=== PATIENT | male | born 1935 | race Caucasian/White ===

== ENCOUNTER 2017-08-02 09:43 | Emergency (ER) | payer MEDICARE, OTHER ==
[~2017-08-02] VITALS: Ht 170.2 cm; Wt 72.6 kg
--- OUTSIDE RECORDS SUMMARY | ~2017-08-02 | XMS | Encounter Summary ---
Demographics + + + | Address | [address] | | | [place] [address] | + + + | Home Phone | | + + + | Preferred Language | Unknown | + + + | Marital Status | | + + + | Christian Affiliation | 1009 | + + + | Race | Unknown | + + + | Ethnic Group | Unknown | + + + Author + + + | Author | [facility] | + + + | Organization | [facility] | + + + | Address | Unknown | + + + | Phone | Unavailable | + + + Support + + +---------+ + | Name | Relationship | Address | Phone | + + +---------+ + | Arminda Olivia | ECON | Unknown | | + + +---------+ + | Enio Moya | ECON | Unknown | | + + +---------+ + | Marina Lee | ECON | Unknown | | + + +---------+ + Care Team Providers + +------+ + | Care Circuit Court Clerk Name | Role | Phone | + +------+ + | Ricardo Chopra MD | PCP | | + +------+ + Reason for Visit + + + | Reason | Comments | + + + | Pacemaker | In office. | + + + Encounter Details +--------+ + + + + | Date | Type | Department | Care Team | Description | +--------+ + + + + | 05/30/ | Documentati | [facility] | Garth Priest | Pacemaker (In | | 2017 | on Only | [facility] [place] | | office. ) | | | | [address] | | | | | | [address] | | | | | | [place] [address] | | | | | | [phone] | | | +--------+ + + + + Social History + +-------+ +--------+------+ | Tobacco Use | Types | Packs/Day | Years | Date | | | | | Used | | + +-------+ +--------+------+ | Former Smoker | | | | | + +-------+ +--------+------+ + +---+---+---+ | Smokeless Tobacco: | | | | | Never Used | | | | + +---+---+---+ + + +---------+ + | Alcohol Use | Drinks/We | oz/Week | Comments | | | ek | | | + + +---------+ + | Yes | 4 Shots | 2.4 | | | | of | | | | | liquor | | | + + +---------+ + + + + | Sex Assigned at | Date Recorded | | | | + + + | Not on file | | + + + as of this encounter Progress Notes Garth Priest - 05/30/2017 11:15 AM PSTIN OFFICE DEVICE INTERROGATION: Longevity/voltage: 8 years. Anticoagulation: Warfarin 5 mg qd Aspirin: 81 mg qd Lead Impedance: WNL Thresholds: WNL Right Ventricle pace: 51.2% Events: 12 NSVT (3 since last [facility] transmission). All at 1 second in duration. Changes: No changes noted. Plan: Remotes / Yearly Last in office with product assembler: 02/22/[address] Hooks. Tech: Jose / Daniela saenz encounter Plan of Treatment +--------+ + + + + | Date | Type | Specialty | Care Team | Description | +--------+ + + + + | 09/06/ | Documentati | Cardiology | | | | 2017 | on Only | | | | +--------+ + + + + | 11/22/ | Office | Cardiology | Yojana Hooks, | | | 2017 | Visit | | MD Leena Graves | | | | | | [address], | | | | | | [place] [address] | | | | | | [phone] | | | | | | | | +--------+ + + + + | 12/06/ | Documentati | Cardiology | | | | 2017 | on Only | | | | +--------+ + + + + | 03/07/ | Documentati | Cardiology | | | | 2017 | on Only | | | | +--------+ + + + + as of this encounter Visit Diagnoses + + | Diagnosis | + + | Chronic atrial fibrillation (HCC) - Primary | + + | Atrial fibrillation | + + | Bradycardia | + + | Other specified cardiac dysrhythmias | + + | Pacemaker | + + | Cardiac pacemaker in situ | + + | Valvular heart disease | + + | Endocarditis, valve unspecified, unspecified cause | + +"
--- OUTSIDE RECORDS SUMMARY | ~2017-08-02 | XMS | Encounter Summary ---
Demographics + + + | Address | [address] | | | [place] [address] | + + + | Home Phone | | + + + | Preferred Language | Unknown | + + + | Marital Status | | + + + | Scientologist Affiliation | 1009 | + + + | Race | Unknown | + + + | Ethnic Group | Unknown | + + + Author + + + | Author | [facility] | + + + | Organization | [facility] | + + + | Address | [...] Team Providers + +------+ + | Care Gang Worker Name | Role | Phone | + [...] + | 05/30/ | Documentati | [facility] | Garth Priest | Pacemaker (In | | 2017 | on Only | [facility] [place] | | office. 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 Hooks. Tech: Jose / [...] | | | | | | [place] [address] | | | | | | [phone] | | | | | | | [...]
--- OUTSIDE RECORDS SUMMARY | ~2017-08-02 | XMS | Clinical Summary ---
Demographics + + + | Address | [address] | | | [place] [address] | + + + | Home Phone | | + + + | Preferred Language | Unknown | + + + | Marital Status | | + + + | Episcopal Affiliation | Unknown | + + + | Race | Unknown | + + + | Ethnic Group | Unknown | + + + Author + + + | Author | [facility] | | | and [place] | + + + | Organization | [facility] | | | and [place] | + + + | Address | Unknown | + + + | Phone | Unavailable | + + + Support + + + + + | Name | Relationship | Address | Phone | + + + + + | Arminda Olivia | ECON | [place], [place] | | | | | [address] | | + + + + + | Radha Mathias | ECON | [address] | | | | | [place] | | | | | [address] | | + + + + + Care Team Providers + +------+ + | Care Account Representative Name | Role | Phone | + +------+ + | Petr Chopra | PP | | + +------+ + Allergies + + + + + + | Active Allergy | Reactions | Severity | Noted | Comments | | | | | Date | | + + + + + + | Codeine | | | 07/03/19 | | | | | | 13 | | + + + + + + | Lisinopril | | | 07/03/19 | Cough | | | | | 13 | | + + + + + + | Penicillins | | | 07/03/19 | | | | | | 13 | | + + + + + + Current Medications + + +-------+---------+------+------+-------+ | Prescription | Sig. | Disp. | Refills | Star | End | Statu | | | | | | t | Date | s | | | | | | Date | | | + + +-------+---------+------+------+-------+ | potassium chloride | Take 10 mEq by mouth | | | | | Activ | | (KLOR-CON 10) 10 | Daily. | | | | | e | | mEq CR tablet | | | | | | | + + +-------+---------+------+------+-------+ | furosemide (LASIX) | Take 20 mg by mouth | | | | | Activ | | 20 mg tablet | Daily. | | | | | e | + + +-------+---------+------+------+-------+ | metoprolol | Take 25 mg by mouth | | | | | Activ | | succinate (TOPROL | Daily. | | | | | e | | XL) 25 mg 24 hr | | | | | | | | tablet | | | | | | | + + +-------+---------+------+------+-------+ | valsartan (DIOVAN) | Take 80 mg by mouth | | | | | Activ | | 80 mg tablet | Daily. | | | | | e | + + +-------+---------+------+------+-------+ | celecoxib | Take 200 mg by mouth | | | | | Activ | | (CELEBREX) 200 mg | 2 times daily. | | | | | e | | capsule | | | | | | | + + +-------+---------+------+------+-------+ | warfarin | Take 5 mg by mouth | | | | | Activ | | (COUMADIN) 5 mg | Daily. Take as | | | | | e | | tablet | directed | | | | | | + + +-------+---------+------+------+-------+ | omeprazole | Take 20 mg by mouth | | | | | Activ | | (PRILOSEC) 20 mg | every morning | | | | | e | | capsule | (before breakfast). | | | | | | + + +-------+---------+------+------+-------+ | ibuprofen (ADVIL, | Take 400 mg by mouth | | | | | Activ | | MOTRIN) 200 mg | every 6 hours as | | | | | e | | tablet | needed. | | | | | | + + +-------+---------+------+------+-------+ | nitroglycerin | Place 0.4 mg under | | | | | Activ | | (NITROSTAT) 0.3 mg | the tongue every 5 | | | | | e | | SL tablet | minutes as needed. | | | | | | + + +-------+---------+------+------+-------+ | | Take by mouth 2 | | | | | Activ | | Glucosamine-Chondroi | times daily. | | | | | e | | tin-MSM 500-400-250 | | | | | | | | MG TABS | | | | | | | + + +-------+---------+------+------+-------+ | Multiple | Take by mouth | | | | | Activ | | Vitamins-Minerals | Daily. | | | | | e | | (CENTRUM SILVER PO) | | | | | | | + + +-------+---------+------+------+-------+ | lovastatin | Take 40 mg by mouth | | | | | Activ | | (MEVACOR) 40 MG | nightly. | | | | | e | | tablet | | | | | | | + + +-------+---------+------+------+-------+ | OMEGA 3 1000 MG | Take 1,000 mg by | | | | | Activ | | CAPS | mouth Daily. | | | | | e | + + +-------+---------+------+------+-------+ | aspirin 81 mg EC | Take 81 mg by mouth | | | | | Activ | | tablet | Daily. 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[facility]) | 07/02/2012 | + + + | Atrial fibrillation (HCC) | 07/02/2012 | + + + | CHF (congestive heart failure) ([facility]) | 07/02/2012 | + + + | Hyperlipidemia | 07/02/2012 | + + + | BPH (benign prostatic hyperplasia) | 07/02/2012 | + + + | Angina effort ([facility]) | 07/02/2012 | + + + Immunizations + + + + | Name | Dates Previously Given | Next Due | + + + + | PNEUMOCOCCAL | 07/05/2007 | | | POLYSACCHARIDE | | | | 23-VALENT (PPSV23) | | | + + + + Family History + + +------+ + | Medical History | Relation | Name | Comments | + + +------+ + | Stroke | Brother | | | + + +------+ + | Other (see comment) | Brother | | lung disease, was in the | + + +------+ + | Stroke | Brother | | | + + +------+ + | Hypertension | Brother | | | + + +------+ + | Suicide | Brother | | | + + +------+ + | Obesity | Daughter | | | + + +------+ + | Other (see comment) | Daughter | | sleep apnea | + + +------+ + | Heart attack | Father | | | + + +------+ + | Ovarian cancer | Mother | | | + + +------+ + | Other (see comment) | Son | | empyema | + + +------+ + + +------+ + + | Relation | Name | Status | Comments | + +------+ + + | Brother | | | | + +------+ + + | Brother | | | | + +------+ + + | Brother | | | | + +------+ + + | Brother | | | | + +------+ + + | Daughter | | Alive | | + +------+ + + | Daughter | | Alive | | + +------+ + + | Father | | | heart attack | + +------+ + + | Mother | | | | + +------+ + + | Sister | | Alive | | + +------+ + + | Son | | Alive | | + +------+ + + Social History + + + +--------+ + | Tobacco Use | Types | Packs/Day | Years | Date | | | | | Used | | + + + +--------+ + | Former Smoker | Pipe, Cigars | | 3 | Quit: 04/03/1989 | + + + +--------+ + + +---+---+---+ | Smokeless Tobacco: | | | | | Never Used | | | | + +---+---+---+ + + | Comments: cigars and pipe for a few years | + + + + +---------+ + | Alcohol Use | Drinks/We | oz/Week | Comments | | | ek | | | + + +---------+ + | Yes | 3 | 1.5 | | | | Standard | | | | | drinks or | | | | | | | | | | equivalen | | | | | t | | | + + +---------+ + + + + | Sex Assigned at | Date Recorded | | | | + + + | Not on file | | + + + Last Filed Vital Signs + + + + | Vital Sign | Reading | Time Taken | + + + + | Blood Pressure | 120/64 | 07/04/2012953 PDT | + + + + | Pulse | 55 | 07/04/201254 PDT | + + + + | Temperature | - | - | + + + + | Respiratory Rate | - | - | + + + + | Oxygen Saturation | 98% | 07/04/2012953 PDT | + + + + | Inhaled Oxygen | - | - | | Concentration | | | + + + + | Weight | 82.4 kg (181 lb 9.6 | 07/04/2012953 PDT | | | oz) | | + + + + | Height | 166.4 cm (5' 5.5") | 07/04/2012953 PDT | + + + + | Body Mass Index | 29.76 | 07/04/2012953 PDT | + + + + Plan of Treatment + + + + + | Health Maintenance | Due Date | Last Done | Comments | + + + + + | Vaccine: | | | | | Dtap/Tdap/Td (1 - | 4 | | | | Tdap) | | | | + + + + + | Vaccine: | | 07/05/2007 | | | Pneumococcal 65+ | 9 | | | | Low/Medium Risk (2 | | | | | of 2 - PCV13) | | | | + + + + + | Vaccine: Influenza | | | | | (Season Ended) | 8 | | | + + + + + Results Not on filefrom Last 3 Months Insurance + +--------+ +--------+ +---------+ | Payer | Benefi | Subscriber | Type | Phone | Address | | | t Plan | ID | | | | | | / | | | | | | | Group | | | | | + +--------+ +--------+ +---------+ | MEDICARE | MEDICA | xxxxxxxxxx | Medica | [phone] | | | RE | | re | [phone] | | | | PART A | | | | | | | AND B | | | | | + +--------+ +--------+ +---------+ | SHAY | STERLI | xxxxxxx | Indemn | [phone] | | | NG | | ity | [phone] | | | | INVEST | | | | | | | ORS | | | | | | | MDCR | | | | | | | SUPPL | | | | | + +--------+ +--------+ +---------+ + +--------+ +--------+ + + | Guarantor Name | Accoun | Relation to | Date | Phone | Billing Address | | | t Type | Patient | of | | | | | | | | | | + +--------+ +--------+ + + | FLYNN MATHIAS | Person | Self [birth year] Home: | [address] | | | al/Fam | | 1936 | [phone] | [place] [address] | | | [place] | | | [phone] | | + +--------+ +--------+ + +
--- OUTSIDE RECORDS SUMMARY | ~2017-08-02 | XMS | Clinical Summary ---
Demographics + + + | Address | [address] | | | [place] [address] | + + + | Home Phone | | + + + | Preferred Language | Unknown | + + + | Marital Status | | + + + | Episcopal Affiliation | Unknown | + + + | Race | Unknown | + + + | Ethnic Group | Unknown | + + + Author + + + | Author | [facility] | | | and [place] | + + + | Organization | [facility] | | | and [place] | + + + | Address | Unknown | + + + | Phone | Unavailable | + + + Support + + + + + | Name | Relationship | Address | Phone | + + + + + | Arminda Olivia | ECON | [place], [place] | | | | | [address] | | + + + + + | Radha Mathias | ECON | [address] | | | | | [place] | | | | | [address] | | + + + + + Care Team Providers + +------+ + | Care Material Liaison Name | Role | Phone | + [...] + + | DVT (deep venous thrombosis) ([facility]) | 07/02/2012 | + + + + + | Overview: Or embolism of distal lower extremity | + + + + + | Pulmonary embolism and infarction ([facility]) | 07/02/2012 | + + + | Atrial fibrillation (HCC) | 07/02/2012 | + + + | CHF (congestive heart failure) ([facility]) | 07/02/2012 | + + + | Hyperlipidemia | 07/02/2012 | + + + | BPH (benign prostatic hyperplasia) | 07/02/2012 | + + + | Angina effort ([facility]) | 07/02/2012 | + + + Immunizations [...] Self | [birth year] | Home: | [address] | | | al/Fam | | 1936 | [phone] | [place] [address] | | | [place] | | | [phone] | | + +--------+ +--------+ + +
--- OUTSIDE RECORDS SUMMARY | ~2017-08-02 | XMS | Clinical Summary ---
Demographics + + + | Address | [address] | | | [place] [address] | + + + | Home Phone | | + + + | Preferred Language | Unknown | + + + | Marital Status | | + + + | Worship Affiliation | 1009 | + + + | Race | Unknown | + + + | Ethnic Group | Unknown | + + + Author + + + | Author | [facility] | + + + | Organization | [facility] | + + + | Address | Unknown | + + + | Phone | Unavailable | + + + Support + + +---------+ + | Name | Relationship | Address | Phone | + + +---------+ + | Arminda Olivia | ECON | Unknown | | + + +---------+ + | Enio Mathias | ECON | Unknown | | + + +---------+ + | Marina Lee | ECON | Unknown | | + + +---------+ + Care Team Providers + +------+ + | Care Facility Rehab Director Name | Role | Phone | + +------+ + | Ricardo Chopra MD | PP | | + +------+ + Allergies + + + + + + | Active Allergy | Reactions | Severity | Noted | Comments | | | | | Date | | + + + + + + | Codeine | Swelling | Medium | 12/18/19 | | | | | | 13 | | + + + + + + | Penicillins | Swelling | Medium | 12/18/19 | | | | | | 13 | | + + + + + + Current Medications + + +-------+---------+------+------+-------+ | Prescription | Sig. | Disp. | Refills | Star | End | Statu | | | | | | t | Date | s | | | | | | Date | | | + + +-------+---------+------+------+-------+ | aspirin 81 MG EC | Take 81 mg by mouth | | | | | Activ | | tablet | daily with | | | | | e | | | breakfast. | | | | | | + + +-------+---------+------+------+-------+ | Multiple Vitamin | Take 1 tablet by | | | | | Activ | | (MULTIVITAMIN) | mouth daily. | | | | | e | | tablet | Complete Mens | | | | | | | | Multi-Vitamin | | | | | | + + +-------+---------+------+------+-------+ | | Take 1 tablet by | | | | | Activ | | glucosamine-chondroi | mouth 3 (three) | | | | | e | | tin 500-400 MG | times daily. | | | | | | | tablet | | | | | | | + + +-------+---------+------+------+-------+ | nitroGLYCERIN | Place 0.4 mg under | | | | | Activ | | (NITROSTAT) 0.4 MG | the tongue every 5 | | | | | e | | SL tablet | (five) minutes as | | | | | | | | needed. | | | | | [...] | | Activ | | (PRILOSEC) 20 MG | every morning before | | | | | e | | capsule | breakfast. | | | | | | + + +-------+---------+------+------+-------+ | potassium chloride | Take 10 mEq by mouth | | | | | Activ | | (K-DUR) 10 MEQ | daily. | | | | | e | | tablet | | | | | | | + + +-------+---------+------+------+-------+ | furosemide (LASIX) | Take 20 mg by mouth | | | | | Activ | | 20 MG tablet | 2 (two) times daily. | | | | | e | + + +-------+---------+------+------+-------+ | warfarin | Take 5 mg by mouth | | | | | Activ | | (COUMADIN) 5 MG | daily. Regulated by | | | | | e | | tablet | [facility] | | | | | | | | [facility] | | | | | | + + +-------+---------+------+------+-------+ | losartan (COZAAR) | Take 100 mg by mouth | | | | | Activ | | 100 MG tablet | daily. | | | | | e | + + +-------+---------+------+------+-------+ | fish oil-omega-3 | Take 1 g by mouth 2 | | | | | Activ | | fatty acids 1000 MG | (two) times daily. | | | | | e | | capsule | | | | | | | + + +-------+---------+------+------+-------+ | Multiple | Take by mouth | | | | | Activ | | Vitamins-Minerals | daily. | | | | | e | | ([facility] | | | | | | | | PO) | | | | | | | + + +-------+---------+------+------+-------+ | QUININE SULFATE PO | Take 300 mg by mouth | | | | | Activ | | | nightly. | | | | | e | + + +-------+---------+------+------+-------+ | celecoxib | Take 200 mg by mouth | | | | | Activ | | (CELEBREX) 200 MG | daily. | | | | | e | | capsule | | | | | | | + + +-------+---------+------+------+-------+ | allopurinol | Take 100 mg by mouth | | | | | Activ | | (ZYLOPRIM) 100 MG | 2 (two) times | | | | | e | | tablet | daily. | | | | | | + + +-------+---------+------+------+-------+ Active Problems + + + | Problem | Noted Date | + + + | Pacemaker | 08/12/2015 | + + + + + | Overview: Medtronic | + + + + + | Essential hypertension | 09/25/2014 | + + + + + | Last Assessment & Plan: HTN, controlled, continue current | | meds at current doses (Lasix, losartan). | + + + + + | CKD (chronic kidney disease) stage 3, GFR 30-59 ml/min | 09/25/2014 | + + + + + | Last Assessment & Plan: CKD, Stage 3, followed by PCP. | + + + + + | CAD (coronary artery disease) | 04/26/2013 | + + + + + | Last Assessment & Plan: 3V-CAD, Hx CABG, Hx PCI/stent, LVEF | | 50-55%. 80yo WM, continues to be modestly active, thinks | | that he is exiting feeling better after pacemaker implantation. | | Also since her last visit, he was admitted with either pneumonia | | or bronchitis, is recovering from that as well. He admits a mild | | degree of exertional shortness of breath and fatigue, but there | | is no orthopnea, PND, or edema. Denies any significant chest | | discomfort. Denies any new visual disturbances, dysarthria, | | dysphasia, lateralizing signs or symptoms. No significant | | bleeding or bruising. Labs reviewed with patient. His device is | | stable. Tolerating medications. No changes in therapy.Hx CABG: | | 1995, CABG*6 (CASTANEDA to LAD, SVG to D1, SVG to ramus, SVG to OM, | | SVG to RPLB, SVG to PDA).Hx PCI/stent: 05/11/2010, D1 (2.25/*mm | | Taxus) 12/18/2012, SVG to RPLB (4.0*16mm Promus | | EP)Hx Pacemaker/ICD: 01/23/2015, Medtronic Advisa MRI A3SR01, | | SN: [id number].Last Cath: 12/18/2012: Left main OK, LAD/LCx/RCA | | occluded, SVG (Y-graft) to ramus, OM occluded, SVG to PDA | | occluded, CASTANEDA to LAD intact, SVG to D1 intact, SVG to RPLB | | stented (4.0*16mm PEP).Last Echo: 12/19/2012: LVEF 50-55%, | | moderate LAE, moderate MR, moderate TR, mild AI, moderate | | Pulmonary HTN.Last Stress Test, 10/28/2014: Lexiscan, mild distal | | lateral Ischemia, LVEF 71%, A fib throughout.NAE, 10/28/2014: no | | significant PAD.24hr HM, 12/04/2014: A fib, 43-122, averaging | | 66bpm, occ PVC's, 601 pauses (2.0-3.1sec).ECG, 05/15/2015 ([facility] | | [facility]): A fib, 71bpm, PVC, VVI-pacing, low voltage. | + + + + + | Chronic atrial fibrillation (HCC) | 04/26/2013 | + + + + + | Last Assessment & Plan: Chronic A fib, SVR, pacemaker | | therapy, anticoagulation (warfarin ) per PCP. No neurological | | symptoms, no significant bleeding or bruising.24hr HM, 12/04/2014: | | A fib, 43-122, averaging 66bpm, occ PVC's, 601 pauses | | (2.0-3.1sec).Pacemaker implanted 01/23/2015, Medtronic Advisa MRI | | A3SR01, SN: [id number].Last interrogation, 04/09/2015: battery at | | 3.03V (YOAV 2.83V), 8+ years, device stable, VVI-R (60/120), | | V-paced 62%. | + + + + + | Hyperlipidemia | 04/26/2013 | + + + + + | Last Assessment & Plan: Hyperlipidemia, at goal, continue | | current meds at current doses (lovastatin). Labs reviewed with | | patient. Labs, 06/04/2015: T Chol: 136, LDL-Chol: 68, HDL-Chol: | | 52, Tri, BNP: 261 Liver enzymes | | NML, K: 4.3, BUN/Cr: 16/1.7 (GFR 40), glu: 84 | | ESR: 9, HgbA1c: 5.7, WBC: 4.3, H/H: 12.0/36.2, plt: 127 | + + + + + | Valvular heart disease | 04/26/2013 | + + + + + | Last Assessment & Plan: Moderate MR, moderate TR. Clinically | | stable.Last Echo: 12/19/2012: LVEF 50-55%, moderate LAE, moderate | | MR, moderate TR, mild AI, moderate Pulmonary HTN. | + + + + + | Pulmonary HTN | 04/26/2013 | + + + + + | Last Assessment & Plan: Moderate Pulmonary HTN, probably due | | to MR, asymptomatic.Last Echo: 12/19/2012: LVEF 50-55%, moderate | | LAE, moderate MR, moderate TR, mild AI, moderate Pulmonary HTN. | + + + + + | Spinal stenosis of lumbar region | 07/02/2012 | + + + | Pulmonary embolism and infarction | 07/02/2012 | + + + Resolved Problems + + + + | Problem | Noted | Resolved | | | Date | Date | + + + + | Chest pain | 12/19/19 | | | | 13 | 7 | + + + + | Renal failure, acute | 12/19/19 | | | | 13 | 7 | + + + + Encounters +--------+ + + + + | Date | Type | Specialty | Care Team | Description | +--------+ + + + + | 05/30/ | Documentati | | Garth Priest | Pacemaker (In | | 2018 | on Only | | | office. ) | +--------+ + + + + from Last 3 Months Family History + + +------+ + | Medical History | Relation | Name | Comments | + + +------+ + | Heart disease | Father | | | + + +------+ + | Hypertension | Father | | | + + +------+ + | Cancer | Mother | | ovarian cancer | + + +------+ + | Heart disease | Mother | | | + + +------+ + + +------+ + + | Relation | Name | Status | Comments | + +------+ + + | Father | | | coronary thrombosis, HTN | | | | (Age | | | | | 82) | | + +------+ + + | Mother | | | heart disease,cancer | | | | (Age | | | | | 84) | | + +------+ + + Social History + +-------+ +--------+------+ [...] + + + | Blood Pressure | 104/62 | 02/22/2017 9:08 AM PST | + + + + | Pulse | 74 | 02/22/2017 9:08 AM PST | + + + + | Temperature | 36.8 C (98.2 F) | 01/24/2015 7:33 AM PDT | + + + + | Respiratory Rate | 18 | 08/12/2015 3:30 PM PDT | + + + + | Oxygen Saturation | 96% | 02/22/2017 9:08 AM PST | + + + + | Inhaled Oxygen | - | - | | Concentration | | | + + + + | Weight | 74.9 kg (165 lb 3.2 | 02/22/2017 9:08 AM PST | | | oz) | | + + + + | Height | 167.6 cm (5' 6") | 02/22/2017 9:08 AM PST | + + + + | Body Mass Index | 26.66 | 02/22/2017 9:08 AM PST | + + + + Plan of Treatment +--------+ + + + + | Date | Type | Specialty | Care Team | Description | +--------+ + + + + | 09/06/ | Documentati | | | | | 2017 | on Only | | | | +--------+ + + + + | 11/22/ | Office | | Yojana Hooks, | | | 2017 | Visit | | MD Leena Graves | | | | | | [address], | | | | | | [place] [address] | | | | | | [phone] | | | | | | | | +--------+ + + + + | 12/06/ | Documentati | | | | | 2017 | on Only | | | | +--------+ + + + + | 03/07/ | Documentati | | | | | 2017 | on Only | | | | +--------+ + + + + + + + + + | Health [...] + + + | Vaccine: Influenza | 09/01/201 | | | | (Season Ended) | 8 | | | + + + + + Implants + +--------+------+ +--------+--------+--------+ | Implanted | Type | Area | Manufacture | Device | Expira | Model | | | | | r | | tion | / | | | | | | Identi | Date | Serial | | | | | | fier | | / Lot | + +--------+------+ +--------+--------+--------+ | Generator-01/23/2015Implanted | Pacema | | MEDTRONIC - | | | | | : 01/23/2015 by Delvin Phelps | ker | | MEDT | | | /[id number] | | T DO (Quantity not on file) | | | | | | [id number] | | | | | | | | / | + +--------+------+ +--------+--------+--------+ | Rv Lead-01/23/2015Implanted: | Pacema | | [employer]TRONIC - | | | | | 01/23/2015 by Delvin Phelps | ker | | MEDT | | | /[id number] | | T, DO (Quantity not on file) | | | | | | [id number] | | | | | | | | / | + +--------+------+ +--------+--------+--------+ Results Not on filefrom Last 3 Months Insurance + +--------+ +------+-------+ + | Payer | Benefi | Subscriber | Type | Phone | Address | | | t Plan | ID | | | | | | / | | | | | | | Group | | | | | + +--------+ +------+-------+ + | MEDICARE | MEDICA | xxxxxxxxxx | | | [address] | | | RE | | | | [place] [address] | | | IP-OP | | | | | + +--------+ +------+-------+ + | COMMERCIAL OTHER | TRANSA | xxxxxxxxx | | | | | | MERICA | | | | | | | LIFE | | | | | + +--------+ +------+-------+ + + +--------+ +--------+ + + | Guarantor Name | Accoun | Relation to | Date | Phone | Billing Address | | | t Type | Patient | of | | | | | | | | | | + +--------+ +--------+ + + | FLYNN MATHIAS | Person | Self [birth year] Home: | [address] | | | al/Fam | | 1936 | [phone] | [place] | | | [place] | | | [phone] | [phone] | + +--------+ +--------+ + +
--- OUTSIDE RECORDS SUMMARY | ~2017-08-02 | XMS | Clinical Summary ---
Demographics + + + | Address | [facility] [address] | | | [place] [address] | + + + | Home Phone | | + + + | Preferred Language | Unknown | + + + | Marital Status | | + + + | Zoroastrianism Affiliation | BAP | + + + | Race | White | + + + | Ethnic Group | Not or | + + + Author + + + | Author | [facility] REVENUE LOCATIONS | + + + | Organization | NON REVENUE LOCATIONS | + + + | Address | Unknown | + + + | Phone | Unavailable | + + + Support + + + + + | Name | Relationship | Address | Phone | + + + + + | ANTONIA MATHIAS | ECON | [address] | | | | | [place] | | | | | [address] | | + + + + + Care Team Providers + +------+ + | Care Manufacturing Baker Name | Role | Phone | + +------+ + | Petr Chopra MD | PP | | + +------+ + Source Comments LIBBY is fully live on both [facility] and [facility] & [facility] Allergies + + + + + + | Active Allergy | Reactions | Severity | Noted | Comments | | | | | Date | | + + + + + + | Codeine | Pruritus | | 06/23/19 | | | | | | 17 | | + + + + + + | Penicillin | Pruritus | | 06/23/19 | | | | | | 17 | | + + + + + + Current Medications + + +--------+---------+------+------+-------+ | Prescription | Sig. | Disp. | Refills | Star | End | Statu | | | | | | t | Date | s | | | | | | Date | | | + + +--------+---------+------+------+-------+ | Glucosamine | Take 500 mg by mouth | | | | | Activ | | Sulfate 500 mg oral | two times daily. | | | | | e | | capsule | | | | | | | + + +--------+---------+------+------+-------+ | lovastatin 40 mg | Take 40 mg by mouth | | | | | Activ | | oral tablet | once daily in the | | | | | e | | | evening. Administer | | | | | | | | with evening meal. | | | | | | + + +--------+---------+------+------+-------+ | losartan 100 mg | Take 100 mg by mouth | | | | | Activ | | oral tablet | once daily. | | | | | e | + + +--------+---------+------+------+-------+ | omeprazole 20 mg | Take 20 mg by mouth | | | | | Activ | | oral capsule,delayed | once daily. | | | | | e | | release(DR/EC) | | | | | | | + + +--------+---------+------+------+-------+ | FLAXSEED OIL | Take 1,000 mg by | | | | | Activ | | (OMEGA 3 ORAL) | mouth two times | | | | | e | | | daily. | | | | | | + + +--------+---------+------+------+-------+ | aspirin EC 81 mg | Take 81 mg by mouth | | | | | Activ | | oral tablet,delayed | once daily. | | | | | e | | release (DR/EC) | | | | | | | + + +--------+---------+------+------+-------+ | warfarin 5 mg oral | Take 5 mg by mouth | | | | | Activ | | tablet | once daily. | | | | | e | + + +--------+---------+------+------+-------+ | potassium chloride | Take 10 mEq by mouth | | | | | Activ | | SR 10 mEq oral | once daily. | | | | | e | | tablet,ER | | | | | | | | particles/crystals | | | | | | | + + +--------+---------+------+------+-------+ | furosemide 20 mg | Take 20 mg by mouth | | | | | Activ | | oral tablet | two times daily. | | | | | e | + + +--------+---------+------+------+-------+ | QUININE SULFATE | Take 300 mg by mouth | | | | | Activ | | ORAL | once daily as | | | | | e | | | needed. | | | | | | + + +--------+---------+------+------+-------+ | allopurinol 100 mg | Take 100 mg by mouth | | | | | Activ | | oral tablet | two times daily. | | | | | e | + + +--------+---------+------+------+-------+ | | Take 1 to 2 tablets | 50 | 0 | 04/2 | | Activ | | HYDROcodone-acetamin | by mouth every four | tablet | | 08/20 | | e | | ophen 5-325 mg oral | hours as needed. | | | 17 | | | | tablet | | | | | | | + + +--------+---------+------+------+-------+ Active Problems + + + | Problem | Noted Date | + + + | SNHL (sensorineural hearing loss) | 06/22/2016 | + + + Social History + +-------+ +--------+ + | Tobacco Use | Types | Packs/Day | Years | Date | | | | | Used | | + +-------+ +--------+ + | Former Smoker | | | | Started: 06/23/1979 | + +-------+ +--------+ + + +---+---+---+ | Smokeless Tobacco: | | | | | Never Used | | | | + +---+---+---+ + + +---------+ + | Alcohol Use | Drinks/We | oz/Week | Comments | | | ek | | | + + +---------+ + | Yes | 1 Shots | 0.6 | every day | | | of | | | [...] + + + | Blood Pressure | 133/66 | 07/26/2016 7:36 PM PDT | + + + + | Pulse | 70 | 07/26/2016 7:36 PM PDT | + + + + | Temperature | 36.6 C (97.9 F) | 07/26/2016 7:36 PM PDT | + + + + | Respiratory Rate | 16 | 07/26/2016 7:36 PM PDT | + + + + | Oxygen Saturation | 95% | 07/26/2016 7:36 PM PDT | + + + + | Inhaled Oxygen | - | - | | Concentration | | | + + + + | Weight | 79.4 kg (175 lb) | 07/26/2016 1:31 PM PDT | + + + + | Height | 167.6 cm (5' 6") | 07/26/2016 1:31 PM PDT | + + + + | Body Mass Index | 28.25 | 07/26/2016 1:31 PM PDT | + + + + Plan of Treatment +--------+ + + + + | Date | Type | Specialty | Care Team | Description | +--------+ + + + + | 08/09/ | Diagnostic | | Cony Toth, | | | 2017 | Visit | | [facility] [address] | | | | | | [address] | | | | | | [place], [place] | | | | | | [address] | | +--------+ + + + + + + + + + | Health Maintenance | Due Date | Last Done | Comments | + + + + + | INFLUENZA VACCINE | | | | | (FLU SHOT) | 8 | | | + + + + + Implants + +------+--------+ +--------+--------+--------+ | Implanted | Type | Area | Manufacture | Device | Expira | Model | | | | | r | | tion | / | | | | | | Identi | Date | Serial | | | | | | fier | | / Lot | + +------+--------+ +--------+--------+--------+ | Cochlear Nucleus | | Right: | COCHLEAR | | 02/11/ | [id number] | | [id number]: Qty: 1 on | | Ear | KATHI | | 2018 | 4 | | 07/26/2016 by Sharif Thomas, | | | | | | /[id number] | | MD | | | | | | [id number] | | | | | | | | 22 / | + +------+--------+ +--------+--------+--------+ Results Not on filefrom Last 3 Months
--- OUTSIDE RECORDS SUMMARY | ~2017-08-02 | XMS | Clinical Summary ---
Demographics + + + | Address | [address] | | | [place] [address] | + + + | Home Phone | | + + + | Preferred Language | Unknown | + + + | Marital Status | | + + + | Rastafari Affiliation | 1009 | + + + | Race | Unknown | + + + | Ethnic Group | Unknown | + + + Author + + + | Author | [facility] | + + + | Organization | [facility] | + + + | Address | [...] Team Providers + +------+ + | Care Pan Puller Name | Role | Phone | + [...] | | e | | tablet | [facility] | | | | | | [...] | | | | e | | ([facility] | | | | | | | [...] Medtronic Advisa MRI A3SR01, | | SN: [id number].Last Cath: 12/18/2012: Left main OK, LAD/LCx/RCA | [...] Medtronic Advisa MRI | | A3SR01, SN: [id number].Last interrogation, 04/09/2015: battery at | | 3.03V [...] | | | | | | [place] [address] | | | | | | [phone] | | | | | | | [...] file) | | | | | | [address] | | | | | | | [...] | xxxxxxxxxx | | | [address] | | | RE | | | | [place] [address] | | | IP-OP | | | [...] | Self | [birth year] | Home: | [address] | | | al/Fam | | 1936 | [phone] [place] | | | [place] | | | [phone] | [phone] | + +--------+ +--------+ + +
--- OUTSIDE RECORDS SUMMARY | ~2017-08-02 | XMS | Clinical Summary ---
Demographics + + + | Address | [facility] [address] | | | [place] [address] | + + + | Home Phone | | + + + | Preferred Language | Unknown | + + + | Marital Status | | + + + | Nondenominational Affiliation | BAP | + + + [...] | ANTONIA MATHIAS | ECON | [address] | | | | | [place] | | | | | [address] | | + + + + + Care Team Providers + +------+ + | Care Autistic Teacher Name | Role | Phone | + +------+ + | Petr Chopra MD | PP | | + +------+ + Source Comments LIBBY is fully live on both [facility] Ambulatory and [facility] InPatient.[facility] Allergies + + + + + [...] | | 2017 | Visit | | [facility] [address] | | | | | | [address] | | | | | | [place], [place] | | | | | | [address] | | +--------+ + + + + [...] Right: | COCHLEAR | | 02/11/ | [id number] | | [id number]: Qty: 1 on | | Ear | KATHI | | 2018 | 4 | | 07/26/2016 by Sharif Thomas, | | | | | | /[id number] | | MD | | | | | | [phone] | | | | | | | | 22 / | + +------+--------+ +--------+--------+--------+ Results Not on filefrom Last 3 Months
[~2017-08-02 09:43] MED LIST: ASPIRIN EC81 MG PO; CELEBREX200 MG PO; CENTRUM SILVER1 EAC2 PO; CEPHALEXIN500 MG PO; COUMADIN5 MG PO; DILAUDID4 MG PO; FUROSEMIDE20 MG PO; GLUCOSAMINE CH1 EAC4 PO; GLUCOSAMINE-CH1 EA26 PO; KLOR-CON 1010 MEQ PO; LEVAQUIN500 MG PO; LOSARTAN POTAS100 MG PO; LOVASTATIN40 MG PO; MACULAR VITAMI1 EACH PO; METOLAZONE5 MG PO; NITROSTAT0.4 MG SL; NORCO 5-325 TA1 EACH PO; OMEGA-3 1,0001 EACH PO; OMEPRAZOLE20 MG PO; PLAVIX75 MG PO; PROAIR HFA8.5 GM IH; TOPROL XL25 MG PO; WARFARIN SODIUM5 MG PO
[2017-08-02] MEDS ORDERED: PREDNISONE20 MG PO (12:16)
[2017-08-02] MEDS ORDERED: NORCO 5-325 TA1 EACH PO (12:17)
[2017-08-24] MEDS ORDERED: ALLOPURINOL100 MG PO (08:49)
== END 2017-08-02 12:28 | disposition home or self-care (01) ==
LOC: ED 09:43
DX: M19.071 Primary osteoarthritis, right ankle and foot (principal); I11.0 Hypertensive heart disease with heart failure; I50.9 Heart failure, unspecified; I48.91 Unspecified atrial fibrillation; E78.5 Hyperlipidemia, unspecified; K21.9 Gastro-esophageal reflux disease without esophagitis; Z86.718 Personal history of other venous thrombosis and embolism; Z88.0 Allergy status to penicillin; Z88.5 Allergy status to narcotic agent; Z88.8 Allergy status to other drugs, medicaments and biological substances; Z88.7 Allergy status to serum and vaccine; Z79.899 Other long term (current) drug therapy; Z79.01 Long term (current) use of anticoagulants; Z79.82 Long term (current) use of aspirin
CPT/HCPCS: 36415; 73610; 80053; 84550; 85025; 85610; 99283

== ENCOUNTER → 2020-06-10 | Emergency (ER) | payer MEDICARE, OTHER ==
[~2020-06-10] MED LIST changes: +ALLOPURINOL100 MG PO; +PREDNISONE20 MG PO
== END ==
LOC: ED 11:55
DX: S32.82XA Multiple fractures of pelvis without disruption of pelvic ring, initial encounter for closed fracture (principal); S27.809A Unspecified injury of diaphragm, initial encounter; D73.5 Infarction of spleen; Z20.822 Contact with and (suspected) exposure to COVID-19; I48.91 Unspecified atrial fibrillation; I11.0 Hypertensive heart disease with heart failure; I50.9 Heart failure, unspecified; E78.5 Hyperlipidemia, unspecified; K21.9 Gastro-esophageal reflux disease without esophagitis; Z88.8 Allergy status to other drugs, medicaments and biological substances; Z88.7 Allergy status to serum and vaccine; Z79.899 Other long term (current) drug therapy; Z79.01 Long term (current) use of anticoagulants; W22.8XXA Striking against or struck by other objects, initial encounter
CPT/HCPCS: 31500; 70450; 71260; 73502; 73560; 74177; 80048; 85025; 85610; 94799; 96375; 96376; 99285-25; C9132; C9803; J1170; J3430; J7121; Q9967; U0003

== ENCOUNTER 2021-06-16 08:42 | Emergency (ER) | payer MEDICARE ==
[~2021-06-16] VITALS: Ht 170.2 cm; Wt 72.6 kg
[~2021-06-16 08:42] MED LIST changes: +POTASSIUM CHLO10 ME1 PO; +TORSEMIDE20 MG PO
--- OUTSIDE RECORDS SUMMARY | 2021-06-16 08:44 | XMS ---
PreManage Notification: FLYNN MATHIAS Security Manager Pathology Events No recent Security Events currently on file CRITERIA MET - [facility] CARE PROVIDERS There are no care providers on record at this time. Meg has no Care Guidelines for this patient. Denise VISIT COUNT (12 MO.) [address] [place] [address] JO[facility]unez TOTAL 3 NOTE: Visits indicate total known visits. ED/C VISIT TRACKING (12 MO.) 06/16/2021 08:42 [facility] [place] TYPE: Emergency COMPLAINT: - BLOODY NOSE 07/21/2020 10:56 [facility] [place] TYPE: Emergency DIAGNOSES: - bilateral leg swelling - Leg Swelling 06/28/2020 09:12 [facility] [place] TYPE: Emergency DIAGNOSES: - MEDIC 83 - Blood in Urine INPATIENT VISIT TRACKING (12 MO.) 07/21/2020 10:56 [facility] [place] TYPE: General Medicine DIAGNOSES: - Localized edema - Acute on chronic combined systolic (congestive) and diastolic (congestive) heart failure - Heart failure, unspecified - Acute on chronic diastolic (congestive) heart failure 06/28/2020 09:12 [facility] [place] TYPE: General Medicine DIAGNOSES: - Blood in Urine - Gross hematuria - Hematuria, unspecified - Other injury of unspecified body region, initial encounter - Acute cystitis with hematuria - Anemia, unspecified [email or web address]
[2021-06-16] MEDS ORDERED: GABAPENTIN300 MG PO (08:56)
[2021-06-16] MEDS ORDERED: METOPROLOL SUCC25 MG PO (08:57)
[2021-06-16] MEDS ORDERED: CEPHALEXIN500 M1 PO (10:04)
== END 2021-06-16 10:17 | disposition home or self-care (01) ==
LOC: ED 08:42
DX: R04.0 Epistaxis (principal); I48.91 Unspecified atrial fibrillation; Z86.711 Personal history of pulmonary embolism; E78.5 Hyperlipidemia, unspecified; Z86.718 Personal history of other venous thrombosis and embolism; K21.9 Gastro-esophageal reflux disease without esophagitis; I11.0 Hypertensive heart disease with heart failure; I50.9 Heart failure, unspecified; Z88.0 Allergy status to penicillin; Z88.5 Allergy status to narcotic agent; Z88.8 Allergy status to other drugs, medicaments and biological substances; Z88.7 Allergy status to serum and vaccine; Z79.899 Other long term (current) drug therapy; Z79.01 Long term (current) use of anticoagulants; Z79.82 Long term (current) use of aspirin
CPT/HCPCS: 30905; 36415; 85025; 85610; 99283-25; J2405

== ENCOUNTER 2022-01-21 10:55 | Emergency (ER) | payer MEDICARE, OTHER ==
[~2022-01-21] VITALS: Ht 167.6 cm; Wt 74.4 kg
[~2022-01-21 10:55] MED LIST changes: +C COMPLEX500 MG PO; +CELEBREX50 MG; +CEPHALEXIN500 M1 PO; +COZAAR25 MG PO; +GABAPENTIN300 MG PO; +METOPROLOL SUCC25 MG PO; +QUININE HCL1 GM MISC
[2022-01-21] MEDS ORDERED: JANTOVEN5 MG PO (11:21)
--- NOTE | 2022-01-23 20:50 | EKG ---
[facility] [address] [place] [address] Signed Ventricular-paced rhythm Abnormal ECG When compared with ECG of 22-JUN-2021 10:49, Vent. rate has decreased BY 3 BPM Confirmed by Estefanía Williamson MD () on 01/23/2022 8:50:23 PM Electronically Signed By: ESTEFANÍA WILLIAMSON MD 01/23/222049 PATIENT NAME: FLYNN MATHIAS REMA Electrocardiogram DATE OF : 33 PHYSICIAN: ESTEFANÍA WILLIAMSON MD REPORT #: [id number] REPORT IS CONFIDENTIAL AND NOT TO BE RELEASED WITHOUT AUTHORIZATION
== END 2022-01-21 15:28 | disposition home or self-care (01) ==
LOC: ED 10:55
DX: I11.0 Hypertensive heart disease with heart failure (principal); I50.9 Heart failure, unspecified; I48.91 Unspecified atrial fibrillation; E78.5 Hyperlipidemia, unspecified; K21.9 Gastro-esophageal reflux disease without esophagitis; Z86.718 Personal history of other venous thrombosis and embolism; Z88.0 Allergy status to penicillin; Z88.5 Allergy status to narcotic agent; Z88.8 Allergy status to other drugs, medicaments and biological substances; Z88.7 Allergy status to serum and vaccine; Z79.01 Long term (current) use of anticoagulants; Z79.82 Long term (current) use of aspirin; Z79.899 Other long term (current) drug therapy
CPT/HCPCS: 36415; 70450; 80053; 83735; 85025; 85060; 85610; 93005; 93010; 99284-25

== ENCOUNTER 2022-06-03 20:36 | Emergency (ER) | payer MEDICARE, OTHER ==
[~2022-06-03] VITALS: Ht 167.6 cm; Wt 74.4 kg
[~2022-06-03 20:36] MED LIST changes: +JANTOVEN5 MG PO
[2022-06-03] MEDS ORDERED: HYDRALAZINE HCL25 MG PO (20:54)
[2022-06-03] MEDS ORDERED: JARDIANCE10 MG (20:54)
== END 2022-06-03 23:00 | disposition home or self-care (01) ==
LOC: ED 20:36
DX: R31.9 Hematuria, unspecified (principal); I11.0 Hypertensive heart disease with heart failure; I50.9 Heart failure, unspecified; I48.91 Unspecified atrial fibrillation; E78.5 Hyperlipidemia, unspecified; K21.9 Gastro-esophageal reflux disease without esophagitis; M10.9 Gout, unspecified; Z88.0 Allergy status to penicillin; Z88.5 Allergy status to narcotic agent; Z88.7 Allergy status to serum and vaccine; Z79.899 Other long term (current) drug therapy; Z79.01 Long term (current) use of anticoagulants; Z79.82 Long term (current) use of aspirin
CPT/HCPCS: 36415; 51798; 74177; 80053; 81001; 85025; 85610; 85730; 99284-25; Q9967

== ENCOUNTER 2022-06-25 11:42 | Emergency (ER) | payer MEDICARE, OTHER ==
[~2022-06-25] VITALS: Ht 167.6 cm; Wt 74.4 kg
[~2022-06-25 11:42] MED LIST changes: +HYDRALAZINE HCL25 MG PO; +JARDIANCE10 MG
--- OUTSIDE RECORDS SUMMARY | 2022-06-25 11:46 | XMS ---
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 Meg has no Care Guidelines for this patient. Denise VISIT COUNT (12 MO.) 3 [facility] TOTAL 3 NOTE: Visits indicate total known visits. ED/C VISIT TRACKING (12 MO.) 06/25/2022 11:42 [facility] [place] TYPE: Emergency COMPLAINT: - FALL 06/03/2022 20:38 [facility] [place] TYPE: Emergency COMPLAINT: - URINATING BLOOD DIAGNOSES: - Allergy status to penicillin - longterm (current) use of anticoagulants - Heart failure, unspecified - Hematuria, unspecified - Unspecified atrial fibrillation - Other usp (current) drug therapy - Allergy status to narcotic agent - Gout, unspecified - longterm (current) use of aspirin - Hypertensive heart disease with heart failure - Hyperlipidemia, unspecified - Allergy status to serum and vaccine - Gastro-esophageal reflux disease without esophagitis 01/21/2022 10:58 [facility] [place] TYPE: Emergency COMPLAINT: - SYNCOPE EPISODES DIAGNOSES: - Allergy status to penicillin - Personal history of other venous thrombosis and embolism - longterm (current) use of aspirin - Allergy status to serum and vaccine - Syncope and collapse - Heart failure, unspecified - Unspecified atrial fibrillation - termite control technician (current) use of anticoagulants - Gastro-esophageal reflux disease without esophagitis - Hypertensive heart disease with heart failure - Other termite control technician (current) drug therapy - Hyperlipidemia, unspecified - Allergy status to other drugs, medicaments and biological substances - Allergy status to narcotic agent INPATIENT VISIT TRACKING (12 MO.) No inpatient visits to display in this time frame [email or web address]
== END 2022-06-25 14:34 | disposition home or self-care (01) ==
LOC: ED 11:42
DX: S30.1XXA Contusion of abdominal wall, initial encounter (principal); I11.0 Hypertensive heart disease with heart failure; I50.9 Heart failure, unspecified; I48.91 Unspecified atrial fibrillation; Z86.711 Personal history of pulmonary embolism; E78.5 Hyperlipidemia, unspecified; K21.9 Gastro-esophageal reflux disease without esophagitis; Z86.718 Personal history of other venous thrombosis and embolism; Z88.0 Allergy status to penicillin; Z88.5 Allergy status to narcotic agent; Z88.7 Allergy status to serum and vaccine; Z88.8 Allergy status to other drugs, medicaments and biological substances; Z79.899 Other long term (current) drug therapy; Z79.01 Long term (current) use of anticoagulants; Z79.82 Long term (current) use of aspirin; W19.XXXA Unspecified fall, initial encounter
CPT/HCPCS: 36415; 71045; 74177; 80053; 82553; 83690; 85025; 85060; 85610; 99284-25; A9270; Q9967

== ENCOUNTER 2023-12-09 08:41 | Emergency (ER) | payer MEDICARE, OTHER ==
[~2023-12-09 08:41] MED LIST changes: +FINASTERIDE5 MG PO; -JARDIANCE10 MG; +JARDIANCE10 MG PO; +METOPROLOL SUCC50 MG PO
[2023-12-09] MEDS ORDERED: ondansetron HCL 4 MG/2 ML VIAL IV ONE (09:00)
[2023-12-09] MEDS ORDERED: HYDROmorphone HCL 1 MG/ML SYR IV ONE (09:00)
[2023-12-09] MEDS ORDERED: LACTATED RINGER'S 1,000 ML IV ONE (09:00)
[2023-12-09 09:01] LABS: BASOPHILS 0.6 % (0-2); EOSINOPHILS 0.3 % (0-6); HEMATOCRIT 29.6 % (35.0-50.0); LYMPHOCYTES 18.1 % (24-44); MCH 37.5 (27-36); MCHC 33.9 g/dl (30-36); MCV 110.6 fl (81-99); MONOCYTES 12.2 % (0-12); NEUTROPHILS 68.8 % (39-80); PLATELET COUNT 182 K/uL (140-440); RBC 2.68 M/ul (4.3-5.7); RDW 18.5 (10.5-15.0)
[2023-12-09 09:17] LABS: ALBUMIN 3.9 g/dL (3.4-5.0); ALBUMIN/GLOBULIN RATIO 1.22 (1.1-2.4); ALCOHOL, MEDICAL <3 ng/dL (<3); ALKALINE PHOSPHATASE 87 U/L (46-116); ALT (SGPT) 34 U/L (14-59); ANION GAP 16.2 (7-21); AST (SGOT) 53 U/L (15-37); BILIRUBIN, TOTAL 1.3 ng/dL (0.2-1.0); CARBON DIOXIDE 25 mmol/L (21-32); CHLORIDE 100 mmol/L (98-107); CREATINE KINASE 827 U/L (39-308); GLOMERULAR FILTRATION RATE,EST 28 mL/min (>60); POTASSIUM 4.2 mmol/L (3.5-5.1); PROTEIN, TOTAL 7.1 g/dL (6.4-8.2); UREA NITROGEN 33 mg/dL (7-18)
[2023-12-09 09:34] LABS: ABO A; ANTIBODY SCREEN NEGATIVE; RH POSITIVE
[2023-12-09 11:00] LABS: BILIRUBIN, URINE NEGATIVE (negative); BLOOD/HGB, URINE NEGATIVE (Negative); KETONE, URINE NEGATIVE (Negative); LEUK ESTERASE, URINE NEGATIVE (negative); NITRITE, URINE NEGATIVE (negative); PH, URINE 5.5 (5-7)
[2023-12-09 11:12] LABS: AMPHETAMINES, URINE NEGATIVE (NEGATIVE); BARBITURATES, URINE NEGATIVE (NEGATIVE); BENZODIAZEPINE, URINE NEGATIVE (NEGATIVE); BUPRENORPHINE, URINE NEGATIVE (NEGATIVE); CANNABINOID, URINE NEGATIVE (NEGATIVE); COCAINE, URINE NEGATIVE (NEGATIVE); ECSTASY, URINE NEGATIVE (NEGATIVE); FENTANYL, URINE NEGATIVE (NEGATIVE); METHADONE, URINE NEGATIVE (NEGATIVE); OPIATES, URINE NEGATIVE (NEGATIVE); OXYCODONE, URINE NEGATIVE (NEGATIVE); PHENCYCLIDINE, URINE NEGATIVE (NEGATIVE)
[2023-12-09] MEDS ORDERED: PERCOCET 5-3251 EACH PO (11:50)
[2023-12-09 12:05] VITALS: BP 118/56
== END 2023-12-09 12:05 | disposition home or self-care (01) ==
LOC: ED 08:41
PROVIDERS: Emergency Medicine
DX: S80.11XA Contusion of right lower leg, initial encounter (principal); M54.2 Cervicalgia; S00.01XA Abrasion of scalp, initial encounter; W20.8XXA Other cause of strike by thrown, projected or falling object, initial encounter; I48.91 Unspecified atrial fibrillation; E78.5 Hyperlipidemia, unspecified; I11.0 Hypertensive heart disease with heart failure; I50.9 Heart failure, unspecified; K57.30 Diverticulosis of large intestine without perforation or abscess without bleeding; M10.9 Gout, unspecified; Z96.21 Cochlear implant status; Z86.711 Personal history of pulmonary embolism; Z86.718 Personal history of other venous thrombosis and embolism; Z95.1 Presence of aortocoronary bypass graft; Z95.5 Presence of coronary angioplasty implant and graft; Z88.0 Allergy status to penicillin; Z88.5 Allergy status to narcotic agent; Z88.8 Allergy status to other drugs, medicaments and biological substances; Z88.7 Allergy status to serum and vaccine; Z95.0 Presence of cardiac pacemaker; Z79.01 Long term (current) use of anticoagulants; Z79.82 Long term (current) use of aspirin; Z79.899 Other long term (current) drug therapy
CPT/HCPCS: 36415; 70450; 71260; 72125; 73080; 73560; 73630; 74177; 80053; 80307; 81003; 82553; 83605; 85025; 85060; 86850; 86900; 86901; 96374; 96375; 99284-25; G0480; J1170; J2405; J7121; Q9967